=== PATIENT | female | born 1985 | race Caucasian/White ===

== ENCOUNTER 2022-07-29 00:16 | Emergency (ER) | payer BC, SELFPAY ==
[2022-07-29 00:22] VITALS: BP 132/70; PULSE 80; RESP 18; TEMP 36.6; O2SAT 99; BMI 35.4
--- NOTE | 2022-07-29 01:19 | ED.WOUNDLAC ---
HPI - Wound/Laceration General Date Seen: 07/29/22 Chief Complaint: Laceration/Wound Stated Complaint: L wrist laceration Time Seen by Provider: 07/29/22 00:39 Source: patient Mode of arrival: ambulatory Limitations: no limitations History of Present Illness HPI narrative: Patient is a 37-year-old female brought in by her a laceration to her left forearm. She was using a supervisor mattress and boxsprings and slipped causing 1/2 cm clean laceration. Last tetanus shot was about five years ago. Bleeding was controlled with direct pressure. Related Data Home Medications Medication Instructions Recorded Confirmed betamethasone dipropionate 0.05 % 1 applic topical BID PRN 07/29/22 07/29/22 topical cream duloxetine 60 mg capsule,delayed 60 mg PO DAILY 07/29/22 07/29/22 release eletriptan 40 mg tablet 40 mg PO DAILY PRN migraine 07/29/22 07/29/22 headache hydroxyzine HCl 25 mg tablet 25 mg PO DAILY PRN 07/29/22 07/29/22 lamotrigine 100 mg tablet 100 mg PO BID 07/29/22 07/29/22 prazosin 1 mg capsule 1 mg PO HS 07/29/22 07/29/22 pregabalin 50 mg capsule 50 mg PO TID 07/29/22 07/29/22 trazodone 50 mg tablet 50 mg PO HS PRN 07/29/22 07/29/22 ziprasidone HCl 40 mg capsule 40 mg PO HS 07/29/22 07/29/22 Allergies Allergy/AdvReac Type Severity Reaction Status Date / Time Penicillin Allergy Intermediate Rash Uncoded 07/29/22 00:39 Sulfa Antibiotics Allergy Intermediate Rash Uncoded 07/29/22 00:39 PFSH [facility] Medical History (Updated 07/29/22 @ 00:59 by Luis Manuel Price MD) Anxiety and depression Bipolar disorder Difficulty sleeping Essential tremor Fibromyalgia GERD (gastroesophageal reflux disease) Medical marijuana use Migraine headache Surgical History History of knee surgery Status post adenoidectomy Status post bilateral breast reduction Status post tonsillectomy Family History (Updated 05/07/22 @ 15:14 by Milad Estrada) Other Bipolar disorder Social History Smoking Status: Former smoker How often do you have a drink containing alcohol: never How often do you have six or more drinks on one occasion: Never AUDIT-C Alcohol total score: 0 Non-prescribed substance use: marijuana (any form) Exam Narrative: Exam Narrative: She has a longitudinal 1.5 cm laceration to the left forearm. No exposed tendon. Normal flexor tendon strength. It is not actively bleeding but it is gaping. Const: Vital Signs, click to edit/add: Vital Signs - 24 hr 07/29/22 00:22 Temperature 97.8 F Pulse Rate [Right Pulse Oximeter] 80 Respiratory Rate 18 Blood Pressure [Ri ght Upper Arm] 132/70 Pulse Oximetry 99 Oxygen Delivery Me thod Room Air Course Vital Signs Vital signs: Initial Vital Signs Temperature 97.8 F 07/29/22 00:22 Temperature Source Temporal Artery Scan 07/29/22 00:22 Pulse Rate 80 07/29/22 00:22 Respiratory Rate 18 07/29/22 00:22 Blood Pressure 132/70 07/29/22 00:22 Blood Pressure Mean 90 07/29/22 00:22 Blood Pressure Position Sitting 07/29/22 00:22 Pulse Oximetry 99 07/29/22 00:22 Oxygen Delivery Method 07/29/22 00:22 Vital Signs Temperature 97.8 F 07/29/22 00:22 Pulse Rate 80 07/29/22 00:22 Respiratory Rate 18 07/29/22 00:22 Blood Pressure 132/70 07/29/22 00:22 Pulse Oximetry 99 07/29/22 00:22 Oxygen Delivery Method 07/29/22 00:22 Temperature 97.8 F 07/29/22 00:22 Pulse Rate 80 07/29/22 00:22 Respiratory Rate 18 07/29/22 00:22 Blood Pressure 132/70 07/29/22 00:22 Pulse Oximetry 99 07/29/22 00:22 Oxygen Delivery Method 07/29/22 00:22 Discharge Plan Discharge Clinical Impression: Forearm laceration Patient Disposition: Home, Self-Care Condition: Improved Additional Instructions: Keep wound clean, dry, protected. Topical antibiotic daily. Watch for signs of infection. Sutures out in 10 days. Prescriptions: No Action betamethasone dipropionate 0.05 % cream 1 applic TOPICAL BID PRN Label Comments: APPLY TO THE AFFECTED AREA TWICE DAILY FOR 2-3 WEEKS THEN NEEDED duloxetine 60 mg capsule,delayed release(DR/EC) 60 mg PO DAILY Label Comments: TAKE 1 CAPSULE BY MOUTH EVERY DAY hydroxyzine HCl 25 mg tablet 25 mg PO DAILY PRN Label Comments: TAKE 1 TO 2 TABLETS BY MOUTH AT BEDTIME CAUSES SEDATION lamotrigine 100 mg tablet 100 mg PO BID Label Comments: Take one tablet po TID. prazosin 1 mg capsule 1 mg PO HS Label Comments: Take three capsules po qhs nightmares. pregabalin 50 mg capsule 50 mg PO TID Label Comments: TAKE 1 CAPSULE BY MOUTH 3 TIMES A DAY trazodone 50 mg tablet 50 mg PO HS PRN Label Comments: Take one-half to one tablet po qhs prn sleep. ziprasidone HCl 40 mg capsule 40 mg PO HS Label Comments: Take one capsule po qhs. eletriptan 40 mg tablet 40 mg PO DAILY PRN (Reason: migraine headache) Follow Up/Referrals: Janiya Jacinto PA-C [Primary Care Provider] - Stand Alone Forms: [facility] Info Instructions Procedures Laceration Laceration 1: Pre procedure diagnosis: Forearm laceration Post procedure diagnosis: Same Written consent by: patient Site marking: not applicable Verification/time out: correct patient, correct site and correct procedure Name of person performing procedure: Luis Manuel Price Site: upper extremity Side (If applicable): left Size (cm): 1.5 Local Anesthetic: lidocaine 1% and with epi Amount of anesthesia used (mL): 2 Pre-repair: deep structures intact Skin layer closed with: nylon Size (cm): 4-0 Number of sutures: 3 Technique: simple, interrupted Wound cleansing: iodine Estimated blood loss (if any): less than 5mls Conclusion: patient tolerated procedure
== END 2022-07-29 01:11 | disposition home or self-care (01) ==
PROVIDERS: Emergency Provider Family Medicine; PCP Physician Assistant Medical
DX: S51.812A Laceration without foreign body of left forearm, initial encounter (principal); W26.8XXA Contact with other sharp object(s), not elsewhere classified, initial encounter; Y93.89 Activity, other specified; Y92.019 Unspecified place in single-family (private) house as the place of occurrence of the external cause; Y99.9 Unspecified external cause status
CPT/HCPCS: 12032; 99281; 99283

== ENCOUNTER 2022-08-24 17:32 | Outpatient (CLI) | payer BC, SELFPAY ==
[2022-08-25 00:19] LABS: Chlamydia DNA Amplified* NOT DETECTED (No Detected); GC DNA Amplified* NOT DETECTED (No Detected)
== END 2022-08-24 17:33 | disposition home or self-care (01) ==
LOC: LKVREF 17:33
PROVIDERS: PCP Physician Assistant Medical; Visit Provider Physician Assistant Medical
DX: N89.8 Other specified noninflammatory disorders of vagina (principal); Z11.3 Encounter for screening for infections with a predominantly sexual mode of transmission
CPT/HCPCS: 87491; 87591

== ENCOUNTER 2022-09-17 08:32 | Outpatient (CLI) | payer BC, SELFPAY ==
[2022-09-17 15:08] LABS: Amphetamine Screen Urine Negative (Negative); Barbiturate Screen Urine Negative (Negative); Benzodiazepines Screen Urine Negative (Negative); Cocaine Screen Urine Negative (Negative); Methadone Screen Urine Negative (Negative); Methamphetamines Screen Urine Negative (Negative); Opiate Screen Urine Negative (Negative); Oxycodone Screen Urine Negative (Negative); Phencyclidine Screen Urine Negative (Negative); Tricyclic Antidepressant Urine Negative (Negative)
[2022-09-17 15:40] LABS: Cannabinoid Screen Urine POSITIVE (Negative)
[2022-09-17 15:53] LABS: Vitamin D 25 Hydroxy* 34 ng/mL (30-80)
[2022-09-17 16:07] LABS: TSH With Reflex to FT4* 0.772 uIU/mL (0.270-4.200)
[2022-09-17 16:08] LABS: Albumin* 4.2 g/dL (3.3-5.0)
[2022-09-17 16:09] LABS: Chloride* 103 mmol/L (96-114); Sodium* 138 mmol/L (135-149)
[2022-09-17 16:10] LABS: Potassium* 3.9 mmol/L (3.6-5.1)
[2022-09-17 16:11] LABS: Bilirubin Total* 0.5 mg/dL (0.1-1.5); Creatinine* 0.8 mg/dL (0.5-1.5); Estimated Glomerular Filt Rate 96 ml/min
[2022-09-17 16:12] LABS: Alanine Aminotransferase* 22 U/L (4-35); Alkaline Phosphatase* 58 U/L (40-150); Aspartate Amino Transferase* 24 U/L (12-35); Blood Urea Nitrogen* 12 mg/dL (5-24); Calcium* 9.4 mg/dL (8.4-10.6); Carbon Dioxide* 28 mmol/L (20-32); Glucose* 112 mg/dL (60-115); Total Protein* 6.6 g/dL (6.0-8.3)
[2022-09-17 16:24] LABS: Hepatitis C Virus Antibody* Negative (Negative)
[2022-09-17 23:16] LABS: HIV 1/2/P24 Combo Screen* Negative (Negative)
[2022-09-20 00:14] LABS: Rapid Plasma Reagin (RPR) Non Reactive (Non Reactive)
[2022-09-20 01:11] LABS: CRP, High Sensitivity 6.1 mg/L (<=3.0)
== END 2022-09-17 08:33 | disposition home or self-care (01) ==
PROVIDERS: PCP Physician Assistant Medical; Visit Provider Physician Assistant Medical
DX: Z00.00 Encounter for general adult medical examination without abnormal findings (principal); R53.83 Other fatigue
CPT/HCPCS: 80053; 80306; 82306; 84443; 86141; 86592; 86618; 86703; 86803

== ENCOUNTER 2024-07-19 08:31 | Outpatient (CLI) | payer BC, SELFPAY ==
[2024-07-19 14:47] LABS: Chlamydia DNA Amplified* NOT DETECTED (No Detected); GC DNA Amplified* NOT DETECTED (No Detected)
== END 2024-07-19 08:32 | disposition home or self-care (01) ==
PROVIDERS: PCP Physician Assistant Medical; Visit Provider Physician Assistant Medical
DX: Z00.00 Encounter for general adult medical examination without abnormal findings (principal); R79.82 Elevated C-reactive protein (CRP); R53.83 Other fatigue; N93.9 Abnormal uterine and vaginal bleeding, unspecified; F32.A Depression, unspecified; F41.9 Anxiety disorder, unspecified
CPT/HCPCS: 80053; 80061; 82306; 84443; 86140; 86703; 86803; 87491; 87591

== ENCOUNTER 2024-08-21 16:58 | Outpatient (CLI) | payer BC, SELFPAY ==
--- NOTE | 2024-08-21 17:00 | CRLHL7_ITS ---
For Patients: As a result of the Century Cures Act, medical imaging exams and procedure reports are released immediately into your electronic medical record. You may view this report before your referring provider. If you have questions, please contact your health care provider. INDICATION: Irregular menstruation COMPARISON: none TECHNIQUE: 2D luke scale and color Doppler images were acquired of the pelvis using a transabdominal and transvaginal approach. FINDINGS: Sonographic images demonstrate a normal size and smooth outer contour of the uterus. Uterus measures 7.0 cm in length by 3.6 cm in AP diameter by 4.4 cm in transverse dimension. The myometrium has a normal uniform echotexture. The endometrial lining appears normal and measures 5.8 mm in composite thickness. Multiple cervical nabothian cysts are present. The right ovary measures 4.0 x 2.0 x 2.9 cm in size and the left ovary measures 4.0 x 2.4 x 2.4 cm. The ovaries demonstrate normal arterial and venous blood flow on color Doppler analysis. There are no suspicious fluid collections within the cul-de-sac. Simple cyst is present in the left ovary measuring 2.3 x 2.2 x 2.2 cm. Simple cyst right ovary measures 2.1 x 1.9 x 1.8 cm. IMPRESSION: Endometrial thickness 5.8 millimeters. No endometrial fluid or uterine fibroid. Dictated by Luis Manuel Real MD @ 08/22/2024 5:57:50 AM (Electronically Signed)
== END 2024-08-21 16:59 | disposition home or self-care (01) ==
LOC: US 17:00
PROVIDERS: PCP Physician Assistant Medical; Visit Provider Physician Assistant Medical
DX: N92.6 Irregular menstruation, unspecified (principal); R93.89 Abnormal findings on diagnostic imaging of other specified body structures
CPT/HCPCS: 76830; 76856

== ENCOUNTER 2024-09-14 14:09 | Outpatient (CLI) | payer BC, SELFPAY | END 2024-09-14 14:10 | disposition home or self-care (01) | PROVIDERS: PCP Physician Assistant Medical; Visit Provider Physician Assistant Medical | DX: R79.89 Other specified abnormal findings of blood chemistry (principal); R45.86 Emotional lability; K59.09 Other constipation; G40.909 Epilepsy, unspecified, not intractable, without status epilepticus; G47.9 Sleep disorder, unspecified; M79.7 Fibromyalgia; R51.9 Headache, unspecified | CPT/HCPCS: 80175; 82670; 83001; 84144; 84403; 84443; 86140; 86231; 86258; 86364 ==

== ENCOUNTER 2024-09-26 08:47 | Outpatient (CLI) | payer BC, SELFPAY ==
--- NOTE | 2024-09-26 08:45 | CRLHL7_ITS ---
For Patients: As a result of the Century Cures Act, medical imaging exams and procedure reports are released immediately into your electronic medical record. You may view this report before your referring provider. If you have questions, please contact your health care provider. BILATERAL SCREENING MAMMOGRAM WITH COMPUTER-AIDED DETECTION AND TOMOSYNTHESIS TECHNIQUE: CC and MLO views were obtained. These mammographic images have been obtained using full-field digital technique. These mammographic images were interpreted with the benefit of computer-aided detection. Breast Tomosynthesis was used in this interpretation. COMPARISON FILM: 08/01/21. FINDINGS: There are scattered areas of fibroglandular density. IMPRESSION: There is no radiographic evidence for malignancy. ASSESSMENT: BI-RADS Category 1: Negative RECOMMENDATION: Routine screening mammogram in 1 year. A lay language report of this examination will be provided to the patient. Luis Manuel Real M.D. Diagnostic Radiologist [email or web address] SP/Dictated by: Luis Manuel Real MD @ 10/02/2024 10:10:00 AM (Electronically Signed)
== END 2024-09-26 08:48 | disposition home or self-care (01) ==
PROVIDERS: PCP Physician Assistant Medical; Visit Provider Physician Assistant Medical
DX: Z12.31 Encounter for screening mammogram for malignant neoplasm of breast (principal)
CPT/HCPCS: 77063; 77067

== ENCOUNTER 2024-10-02 08:38 | Outpatient (CLI) | payer BC, SELFPAY ==
--- NOTE | 2024-10-02 09:46 | W.ANESCHARGE ---
Anesthesia Charges Start Date/Time Anesthesia Start Date: 10/02/24 Anesthesia Start Time: 10:31 Stop Date/Time Anesthesia Stop Date: 10/02/24 Anesthesia Stop Time: 11:22
--- NOTE | 2024-10-02 11:25 | W.ANESCHARGE ---
Anesthesia Charges Start Date/Time Anesthesia Start Date: 10/02/24 Anesthesia Start Time: 10:31 Stop Date/Time Anesthesia Stop Date: 10/02/24 Anesthesia Stop Time: 11:22
== END 2024-10-02 08:39 | disposition home or self-care (01) ==
LOC: OP CLINIC 08:39
PROVIDERS: PCP Physician Assistant Medical; Visit Provider Surgery
DX: K59.00 Constipation, unspecified (principal); D12.3 Benign neoplasm of transverse colon; D12.8 Benign neoplasm of rectum; R19.7 Diarrhea, unspecified
CPT/HCPCS: 00813; 43239; 45380; 45385; 88305; J2405; J2704; J3490

== ENCOUNTER 2024-10-05 08:36 | Outpatient (CLI) | payer BC, SELFPAY ==
--- NOTE | 2024-10-05 09:00 | CRLHL7_ITS ---
For Patients: As a result of the Century Cures Act, medical imaging exams and procedure reports are released immediately into your electronic medical record. You may view this report before your referring provider. If you have questions, please contact your health care provider. INDICATION: Lower abdominal pain for 6 months TECHNIQUE: CT abdomen and pelvis acquired with 84 cc Isovue 370 IV contrast and water for oral contrast. COMPARISON: None. FINDINGS: Lower chest: Unremarkable. Liver: Hypodensity along the falciform ligament, likely focal fat. Gallbladder and bile ducts: Unremarkable. No stones or inflammation. No biliary dilatation. Pancreas: Unremarkable. Spleen: Unremarkable. Adrenal glands: Unremarkable. No nodules. Kidneys: Unremarkable. No suspicious masses, stones, or hydronephrosis. GI tract: No obstruction or bowel wall thickening. Mild thickening of the gastric pylorus. Normal appendix. Vasculature: Abdominal aorta is normal in caliber. Mesenteric arteries are patent. Lymph nodes: No lymphadenopathy. Peritoneum/Abdominal Wall: No free air or significant free fluid. Pelvis: Heterogeneous myometrium of the uterus, which is nonspecific. Mild prominence and enhancement of the urethra. Bones: Unremarkable for age. IMPRESSION: Mild prominence and enhancement of the urethra, which is concerning for ureteritis. Correlate with symptoms. Mild thickening of the gastric pylorus is most likely related to peristalsis, however mild underlying gastritis is also in the differential. Please note that all CT scans at this facility use dose modulation, iterative reconstruction, and/or weight-based dosing when appropriate to reduce radiation dose to as low as reasonably achievable. Dictated by Deanna Lozano MD @ 10/06/2024 9:08:25 AM (Electronically Signed)
== END 2024-10-05 08:37 | disposition home or self-care (01) ==
LOC: CT 08:37
PROVIDERS: PCP Physician Assistant Medical; Visit Provider Physician Assistant Medical
DX: R10.9 Unspecified abdominal pain (principal); K29.70 Gastritis, unspecified, without bleeding; K59.09 Other constipation
CPT/HCPCS: 74177; Q9967

== ENCOUNTER 2024-10-18 10:35 | Outpatient (CLI) | payer BC, SELFPAY ==
--- NOTE | 2024-10-18 10:15 | CRLHL7_ITS ---
For Patients: As a result of the Century Cures Act, medical imaging exams and procedure reports are released immediately into your electronic medical record. You may view this report before your referring provider. If you have questions, please contact your health care provider. INDICATION: Vision changes. TECHNIQUE: Brain MRI with and without contrast. Pituitary protocol. 15 cc of gadolinium based contrast administered. COMPARISON: Sinus CT from 10/27/2021. FINDINGS: The pituitary gland is normal in size and appearance. The neurohypophysis demonstrates normal T1 shortening. Pituitary infundibulum is midline and normal in appearance. The cavernous sinuses and Meckel`s caves are normal in appearance. The suprasellar cistern, hypothalamus and optic chiasm are all normal in appearance. All the major intracranial vascular structures demonstrate normal flow-related signal voids and intraluminal enhancement. Sphenoid sinus demonstrates subsellar pneumatization. No acute infarct or hemorrhage. A few small FLAIR hyperintense foci scattered within the supratentorial white matter, typical for chronic microvascular ischemic change. No mass effect or herniation. No hydrocephalus or extra-axial collections. Posterior fossa is normal. All the major intracranial vascular structures demonstrate normal flow-related signal. The orbital contents are normal. No calvarial or skull base marrow signal abnormality. No obstructive sinus disease. No extracranial soft tissue findings. IMPRESSION: 1. No abnormalities involving the pituitary gland, infundibulum or parasellar structures. 2. No acute ischemia. No mass or pathologic intracranial enhancement. 3. No other significant intracranial pathology. Dictated by Kel Mansfield MD @ 10/20/2024 10:43:54 AM (Electronically Signed)
== END 2024-10-18 10:36 | disposition home or self-care (01) ==
LOC: MRI 10:35
PROVIDERS: PCP Physician Assistant Medical; Visit Provider Physician Assistant Medical
DX: H53.9 Unspecified visual disturbance (principal)
CPT/HCPCS: 70553; A9575